=== PATIENT | female | born 1990 | race Caucasian/White ===

== ENCOUNTER 2018-06-15 08:08 | Inpatient (IN) | payer OTHER ==
[~2018-06-15] VITALS: Ht 162.6 cm; Wt 65.0 kg
[2018-06-15] MEDS ORDERED: LACTATED RINGER'S 1000ML 500 ML IV PRN (08:31)
[2018-06-15] MEDS ORDERED: LACTATED RINGER'S 1000ML 1,000 ML IV SCH ×2 (08:31→15:17)
[2018-06-15] MEDS ORDERED: LACTATED RINGER'S 1000ML 1,000 ML IV PRN (08:31)
[2018-06-15] MEDS ORDERED: CEFAZOLIN IV 1,000 MG in SYRINGE 0 ML IV PRN (08:45)
[2018-06-15] MEDS ORDERED: OXYTOCIN 30 UNITS/500ML NSS IV PRN ×2 (08:45→15:30)
[2018-06-15 08:53] LABS: HEMATOCRIT 37.2 % (37-47); HEMOGLOBIN 13.1 g/dL (12.0-16.0); MEAN CELL VOLUME 89.2 fL (80-100); MEAN CORPUSCULAR HEMOGLOBIN 31.4 pg (25-34); MEAN CORPUSCULAR HGB CONC 35.2 g/dl (32-36); MEAN PLATELET VOLUME 11.4 fL (7.4-10.4); PLATELET COUNT 169 K/uL (130-400); RED CELL DISTRIBUTION WIDTH CV 13.2 % (11.5-14.5); RED CELL DISTRIBUTION WIDTH SD 43.1 fL (36.4-46.3); WHITE BLOOD COUNT 18.52 K/uL (4.8-10.8)
[2018-06-15 09:10] VITALS: Ht 162.6 cm; Wt 65.0 kg
[2018-06-15] MEDS ORDERED: PRENTAB26 PO (09:15)
[2018-06-15] MEDS ORDERED: CEFAZOLIN IV 2,000 MG in SYRINGE 0 ML IV ONE (09:15)
--- NOTE | 2018-06-15 10:19 | Progress Note ---
Progress Note Date of Service Jun 15, 2018. Progress Note 27yo , WILEY of 06/11/2018 by US, 40.4 weeks GA, presenting with contractions 7minutes apart. course unremarkable. Blood type is A+, antibody negative, Rubella immune, Hep B negative, GBS+. O: Abdomen: Gravid, vertex, +FHTs : 5.0/80/-2 A/P: 40.4 weeks GA presenting with contractions 7mins apart. Cefazolin 2000mg IV once + Cefazolin 1000mg IV q8h PRN Anticipate NVSD
--- NOTE | 2018-06-15 15:25 | Vaginal Delivery Summary ---
Vaginal Delivery Summary in labor at 40+ weeks. Patient labored spontaneously without epidural at her own request. She reached complete dilation with an urge to push, was positioned and prepped for delivery, and then rapidly delivered a viable male infant. The infant's left arm was a compound presentation alongside R cheek. There was no delay at delivery of the shoulders. The infant was placed on the maternal abdomen and the cord was doubly clamped and cut by the FOB. The placenta delivered spontaneously and was intact with 3VC. A first degree laceration was repaired with 3-0 vicryl after infiltration with 12cc 1% lidocaine.
[2018-06-15] MEDS ORDERED: BENZOCAINE 20% AER SPR 82.5 GM CAN EXT PRN (15:30)
[2018-06-15] MEDS ORDERED: ACETAMINOPHEN 325 MG TAB PO PRN (15:30)
[2018-06-15] MEDS ORDERED: OXYCODONE/ACETAMINOPHEN 5-325 TAB PO PRN (15:30)
[2018-06-15] MEDS ORDERED: SUPERCREAM 0.870 % 15GM JAR EXT PRN (15:30)
[2018-06-15] MEDS ORDERED: HYDROCORTISONE ACETATE 25 MG SUPP PR PRN (15:30)
[2018-06-15] MEDS ORDERED: LANOLIN OINT EXT PRN (15:30)
[2018-06-15] MEDS ORDERED: DIPHTHERIA/TETANUS/PERTUSSIS 0.5 ML SYR/VIAL IM. ONE (15:30)
[2018-06-15] MEDS: IBUPROFEN 600 MG TAB PO PRN ×2 (15:58→19:41)
[2018-06-15 18:35] VITALS: BP 120/73; PULSE 94; TEMP 37.3
[2018-06-15] MEDS: DOCUSATE SODIUM 100 MG CAP PO SCH (19:40)
[2018-06-15 20:20] VITALS: BP 112/73; PULSE 65; TEMP 37.1
[2018-06-16 00:40] VITALS: BP 104/67; PULSE 76; TEMP 36.8
[2018-06-16] MEDS: IBUPROFEN 600 MG TAB PO PRN ×3 (01:02→12:00)
[2018-06-16 04:30] VITALS: BP 111/73; PULSE 65; TEMP 36.4
--- NOTE | 2018-06-16 06:49 | OB/GYN Progress Note ---
[employer] Progress Note Date of Service Jun 16, 2018. Subjective conversation w/ patient Ambulation: ambulating normally Voiding: no voiding problems Passing Gas: No (States not yet) Diet Tolerance: Regular Diet Lochia: Moderate Pain: Improving Review of Systems Respiratory: No shortness of breath Cardiac: No chest pain, No palpitations Female : No dysuria Objective Vital Signs Date Time Temp Pulse Resp B/P (MAP) Pulse Ox O2 Delivery O2 Flow Rate FiO2 06/16/18 04:30 36.4 65 20 111/73 (86) Room Air 06/16/18 00:40 Room Air 06/16/18 00:40 36.8 76 18 104/67 (79) Room Air 06/15/18 20:20 37.1 65 20 112/73 (86) Room Air 06/15/18 18:35 Room Air 06/15/18 18:35 37.3 94 20 120/73 (89) Room Air Physical Exam General Appearance: WELL-APPEARING, NO APPARENT DISTRESS Respiratory/Chest: lungs clear, normal breath sounds, no respiratory distress Cardiovascular: regular rate, rhythm, no murmur Abdomen: soft Fundus: Firm (at umbilicus) Extremities: normal inspection, no calf tenderness Laboratory Results Last 24 Hours Test 06/15/18 08:40 06/16/18 04:44 White Blood Count 18.52 K/uL Red Blood Count 4.17 M/uL Hemoglobin 13.1 g/dL Hematocrit 37.2 % Mean Corpuscular Volume 89.2 fL Mean Corpuscular Hemoglobin 31.4 pg Mean Corpuscular Hemoglobin Concent 35.2 g/dl RDW Standard Deviation 43.1 fL RDW Coefficient of Variation 13.2 % Platelet Count 169 K/uL Mean Platelet Volume 11.4 fL Assessment and Plan Post- Day Number: 1 Continue Routine Care: Analgesia PRN Escalate diet Ambulation encouraged Resident Physician Supervision Note: I interviewed and examined the patient. Discussed with Dr. Urena and agree with findings and plan as documented in the note. Any exceptions or clarifications are listed here: [None] Documented By: Sue Quintanilla
--- NOTE | 2018-06-16 06:52 | Discharge Instructions ---
Discharge Instructions Date of Service Jun 16, 2018. Admission Reason for Admission: Labor Check Discharge Discharge Diagnosis / Problem: Vaginal Delivery Discharge Goals Goal(s): Routine recovery after delivery Medications Continue Dispensed Medications: supercream, dermaplast, tucks, lansinoh Activity Recommendations Activity Limitations: per Instructions/Follow-up section . Instructions / Follow-Up Instructions / Follow-Up ACTIVITY RECOMMENDATIONS: * Gradual return to full activity over the next 2-3 weeks. * No lifting - nothing heavier than baby over the next 2-3 weeks. * Do not engage in vigorous exercise, sexual activity or sports until cleared by your physician. * Do not drive or operate any motorized equipment until cleared by your physician. * You may shower/bathe daily. MEDICATIONS: For discomfort or pain, you may use Acetaminophen (Tylenol), Ibuprofen (Advil), or Naproxen (Aleve) following the package directions. For constipation you may use Colace following the package directions. BREAST CARE: If you are not breast feeding: * Wear a supportive bra 24 hours a day for one to two weeks. * Avoid stimulating your breasts and nipples as much as possible during the first few weeks after delivery. * When taking a shower, have the warm water hit your back, not breasts. * When your breasts feel full, apply ice packs. Usually three to four times a day helps ease the discomfort. * Take a mild pain medication (Tylenol / Motrin) when you are uncomfortable. If breast feeding: * Use breast milk to lubricate nipples. Lansinoh cream may be used for sore nipples. You do not need to remove cream prior to breast feeding. If using a different brand of cream, check the label for directions regarding removal of cream prior to nursing. * Wear a supportive bra. * If having problems with breasts or breast feeding, call a data security consultant or your health care provider. EPISIOTOMY CARE: After delivery, if you have an episiotomy (stitches), the following steps will ease discomfort and aid healing. * For the first 24 hours after delivery, place ice packs next to your episiotomy to help reduce swelling. * After the first 24 hour-period, sitz baths, either portable or in the tub, are suggested. A shower with a shower arm sprayed over the episiotomy may be comforting. * Yoly care should be done after each voiding and bowel movement. Squirt warm water from a plastic bottle over the perineum (region of the body between the anus and urinary opening) and pat dry. * Use Dermoplast to ease discomfort. Shake container. Summit directly over the episiotomy. Place a Tucks on a clean sanitary pad next to your episiotomy. SPECIAL CARE INSTRUCTIONS: When you are discharged from the hospital, it is important for you to follow the instructions listed below: * During the first week at home, you should be able to care for yourself and your baby. In addition, the usual light household activities are encouraged. * Limit your activities to the way you feel. Do not try to clean the house or move furniture. Be sensible. * If you actively engage in sports and have done so up until the time of your delivery, you may resume these activities as soon as you feel able. This may take up to one month or even longer. Use good judgment. * Continue to take your vitamins for at least six weeks after the of your baby. * Your diet need not be limited unless you were on a special diet before your delivery. Breast-feeding mothers need around 2500 calories per day and at least 64-80 ounces of fluid per day (8 to 10 glasses). * You should eat foods from the four major food groups. Crash diets or fad diets are to be avoided. Eating lean meats, fresh fruits and vegetables, low-fat dairy products, high fiber foods and a regular exercise program, will help you get back to your pre- weight without putting your health at risk. * Constipation is sometimes a problem after delivery. Take a mild laxative as needed. If breast feeding, Milk of Magnesia is acceptable to use. You may use a suppository or Fleets enema if no episiotomy. * A daily shower or tub bath is suggested. Be sure to thoroughly and gently dry the perineum. * A bloody vaginal discharge will usually continue until around four weeks post . A small amount of bleeding may continue for as long as six weeks. Vaginal discharge changes from the bright red bleeding after delivery to pink then brownish and finally yellowish-pink before becoming white and disappearing. * Bleeding may increase with activity. Your first period may come in 4-8 weeks. If you are breast feeding, your period may be delayed even longer. * Halsey (sex) can begin whenever both you and your partner feel comfortable and do not have any form of genital infection. It is recommended that you wait at least six weeks for internal and external healing to occur. If you have questions, please talk to your health care practitioner. A condom should be used to prevent infection and . * Foreplay, gentle intercourse and lubrication is very important the first several times to prevent pain. A water-based lubricant such as K-Y jelly or Astroglide may be used. * If you have RH negative blood and your baby is RH positive, you will receive RHOGAM by injection prior to discharge. The nurse will give you a card to keep with you that has the date and place that you received RHOGAM after delivery. * During your care, you had a Rubella screen done to check for the presence of rubella antibodies in your blood. If your test was negative, you will receive a Rubella vaccine prior to discharge. This vaccine may cause a fever, soreness at the injection site and flu-like symptoms. If these symptoms persist, notify your health care practitioner. is not advised for one month after a Rubella vaccine. * Verbalizes understanding of car seat law as reviewed with patient nursing. * Car Seat hand-out given and reviewed with patient by nursing. * Shaken baby information reviewed with patient by nursing. Call you doctor if: * Heavy bleeding (saturating several pads an hour) or passing clots the size of your fist. * A fever >101 degrees F (38.3 degrees C) on two occasions four hours apart and /or chills. * Unusual pain in the pelvic or vaginal areas. * "Baby Blues" lasting longer than two weeks. If you have any questions or concerns, call your health care practitioner at . FOLLOW UP VISIT: * Please call the office at to schedule a 6 week examination. It is important you keep this appointment. It is important for you to make arrangements for either yearly or twice yearly check-ups thereafter. Current Hospital Diet Patient's current hospital diet: Regular OB Diet Discharge Diet Recommended Diet: Regular OB Diet Pending Studies Studies pending at discharge: no Medical Emergencies . Who to Call and When: Medical Emergencies: If at any time you feel your situation is an emergency, please call 911 immediately. . Non-Emergent Contact Non-Emergency issues call your: Primary Care Provider . . "Provider Documentation" section prepared by Emelia Urena. .
[2018-06-16 07:08] LABS: HEMATOCRIT 33.3 % (37-47); HEMOGLOBIN 11.4 g/dL (12.0-16.0)
[2018-06-16] MEDS: PRENATAL VITAMIN TAB PO SCH (08:09)
[2018-06-16] MEDS: DOCUSATE SODIUM 100 MG CAP PO SCH ×2 (08:09→20:36)
[2018-06-16] MEDS: FERROUS SULFATE 325 MG TAB PO SCH (08:09)
[2018-06-16 08:20] VITALS: BP 110/70; PULSE 71; TEMP 36.4
[2018-06-16 12:00] VITALS: BP 102/69; PULSE 70; TEMP 36.7
[2018-06-16 16:30] VITALS: BP 114/73; PULSE 81; TEMP 36.6
[2018-06-17 00:25] VITALS: BP 116/80; PULSE 73; TEMP 36.7
[2018-06-17] MEDS: IBUPROFEN 600 MG TAB PO PRN (00:33)
--- NOTE | 2018-06-17 07:56 | Progress Note ---
Subjective Jun 17, 2018. Subjective conversation w/ patient, physical exam Ambulation: ambulating normally Voiding: no voiding problems Diet Tolerance: Regular Diet Lochia: Small Feeding Type: Breast Feeding Pain: no pain issues. Objective Vital Signs Date Time Temp Pulse Resp B/P (MAP) Pulse Ox O2 Delivery O2 Flow Rate FiO2 06/17/18 00:25 36.7 73 18 116/80 (92) 06/17/18 00:25 Room Air 06/16/18 16:30 36.6 81 16 114/73 (87) Room Air 06/16/18 12:00 36.7 70 18 102/69 (80) Room Air 06/16/18 08:20 Room Air 06/16/18 08:20 36.4 71 18 110/70 (83) Room Air Physical Exam General Appearance: WELL-APPEARING, WD/WN, NO APPARENT DISTRESS Respiratory/Chest: lungs clear Cardiovascular: regular rate, rhythm Abdomen: non tender, soft Fundus: Firm, Relation to Umbilicus (2 down) Extremities: non-tender Assessment and Plan Post- Day#: 2 Continue Routine Care: stable, routine care, d/c home, f/u 6wks pp, instructions reviewed.
[2018-06-17 08:15] VITALS: BP 105/72; PULSE 73; TEMP 36.9
[2018-06-17] MEDS: PRENATAL VITAMIN TAB PO SCH (08:17)
[2018-06-17] MEDS: DOCUSATE SODIUM 100 MG CAP PO SCH (08:17)
[2018-06-17] MEDS: FERROUS SULFATE 325 MG TAB PO SCH (08:17)
[2018-06-17 13:21] VITALS: BP_DIAS 72; PULSE 73; TEMP 36.9
== END 2018-06-17 14:10 | disposition home or self-care (01) | DRG 775 ==
LOC: C.LD 08:08 → C.OPB 08:08 → C.LD 08:33 → C.OBG 17:07
PROVIDERS: ADMIT Obstetrics & Gynecology; ATTEND Obstetrics & Gynecology
PROC: 10E0XZZ Delivery of Products of Conception, External Approach (ICD-10-PCS; principal; 2018-06-15)
PROC: 0HQ9XZZ Repair Perineum Skin, External Approach (ICD-10-PCS; principal; 2018-06-15)
DX: O48.0 Post-term pregnancy (principal); Z3A.40 40 weeks gestation of pregnancy; O70.0 First degree perineal laceration during delivery; O99.824 Streptococcus B carrier state complicating childbirth; Z37.0 Single live birth; Z88.0 Allergy status to penicillin

== ENCOUNTER 2021-05-21 15:46 | Inpatient (IN) ==
[2021-05-21] MEDS ORDERED: ceFAZolin 1000MG 1,000 MG/7.5 ML SYR IV PRN (19:06)
[2021-05-21] MEDS ORDERED: OXYTOCIN 30 UNITS/500 ML BAG IV PRN (19:15)
[2021-05-21] MEDS ORDERED: LACTATED RINGER'S 1,000 ML IV PRN (19:15)
[2021-05-21] MEDS ORDERED: ceFAZolin 2000MG 2,000 MG/15 ML SYR IV STA (19:16)
--- NOTE | 2021-05-21 19:21 | History & Physical Report ---
Date of Service May 21, 2021 Assessment & Plan (1) : 30 y/o at 40 wga presents in labor VSS Fetus cat 1 Labor - will expectant manage, plan arom when closer to adequate tx as rapidly progressed w/ last delivery GBS +, has pcn allergy. Got ancef last time when GBS+ per notes, pt reports she tolerated it fine so will start this again Declines epidural History of Present Illness Chief Complaint: Labor Primary Care Provider: Terri Ledbetter MD 30 yo at 40 wga w/ WILEY 05/21 by LMP 08/14/20 c/w 1st tri US presents to lab or and delivery in labor. +FM and ctx, denies LOF, VB. On arrival was 4/75/-2, after ambulating was 5/75/-2 and so admitted in labor PNI: GBS+ Hx hematoma after G1 delivery requiring I&D Past [employer]SEL [employer] Hx: G1 2015 at 41 wks, hematoma requiring I&D G2 2018 at 40 wks G3 current Menarche 15, q29d cycles Denies hx STIs Denies hx abnl pap, 10/2020 neg cytology Allergies Allergy/AdvReac Type Severity Reaction Status Date / Time Penicillins Allergy Intermediate Brathing Verified 05/21/21 17:02 difficulty Home Medications Medication Instructions Recorded Confirmed Type albuterol sulfate [ProAir HFA] 2 puff INH .Q4-6 HRS PRN 05/23/20 05/21/21 History docusate sodium [Colace] 100 mg PO BID #60 cap 05/23/20 05/21/21 Rx prenat.vits,violet,lce-[id number] 1 tab PO DAILY 10/02/20 05/21/21 History Patient History Medical History (Updated 05/21/21 @ 19:20 by Bharati Dave MD) Mild intermittent asthma Surgical History History of evacuation of hematoma History of wisdom tooth extraction Family History Sister Depression with anxiety Ovarian cyst Seizure Grandmother (Paternal) Breast cancer Father Diabetes Grandmother (Maternal) Diabetes Hypertension Myocardial infarction Uncle Diabetes Myocardial infarction Mother Hypertension Thyroid disease Grandfather (Paternal) Hypertension Myocardial infarction Sister Depression Sister No problems noted. Son No problems noted. Daughter No problems noted. 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 Other Information That Helps Us Care for You: No Feels Safe at Home: Yes Safety Concerns: Feels Safe At This Time Childhood Exposure to Second-Hand Smoke: No Dental Care, Regularly: Yes Physical Activity Frequency: Daily Seatbelt Use: always Sunscreen Use: Yes Assistive Devices: None Physical Exam Constitutional: WD/WN, vitals as above Respiratory: normal respiratory effort; no respiratory distress and no labored breathing Psychiatric: A+Ox3, euthymic affect Genitourinary: OB Exam Abdomen: + vertex and + estimated weight (6-7) Manual OB Exam: + cervical dilation (4>5 after 2hr marilyn), + cervical effacement 70% and + station -2 OB Exam Monitor Tracing: + external FHT monitor used, + external uterine monitor used (q4-6) and + category I (145/mod/+accel/-decel) Results & Data ([facility]) Vital Signs (Past 12 Hours) Vital Signs Temp Pulse Resp BP 05/21/21 15:53 98.6 F 85 20 108/66 Laboratory Results OB Labs: Blood Type A Positive 10/13/20 Antibody Screen NEGATIVE 10/13/20 Hemoglobin 11.5 g/dL (12.0-16.0) L 03/01/21 Hematocrit 34.5 % (37-47) L 03/01/21 Mean Corpuscular Volume 88.6 fL (80-100) 10/13/20 Platelet Count 240 K/uL (130-400) 10/13/20 Rubella IgG Antibody Immune (Immune) 10/13/20 Rapid Plasma Reagin Nonreactive (Nonreactive) 10/13/20 Hepatitis B Surface Antigen Neg (Neg) 10/13/20 HIV (1&2) Ab and P24 Ag, 4th Gener Neg (Neg) 10/13/20 Glucose 1 Hour 50 gm Load 144 mg/dl (70-130) H 12/16/20 Maternal Serum Alpha Fetoprotein 71.4 ng/mL 12/16/20 OB Optional Labs: Chlamydia trachomatis RNA NOT DETECTED (NOT DETECTED) 10/13/20 Neisseria gonorrhoeae RNA NOT DETECTED (NOT DETECTED) 10/13/20 Thyroid Stimulating Hormone (TSH) 2.130 uIu/ml (0.300-4.500) 06/26/20 Alpha Fetoprotein Triple Screen SEE NOTE 12/16/20 Labs Reviewed: declines cf/sma low risk cfdna afp neg GBS+ Diagnostic Findings Anterior plac Coding Level of Care Code None Diagnoses Z34.90
[2021-05-21 19:35] LABS: Hemoglobin 12.3 g/dL (12.0-16.0); Mean Corpuscular Hemoglobin 30.6 pg (25-34); Mean Corpuscular Hgb Conc 34.2 g/dL (32-36); Mean Corpuscular Volume 89.6 fL (80-100); Mean Platelet Volume 11.3 fL (7.4-10.4); Platelet Count 208 K/uL (130-400); RDW Coefficient of Variation 13.8 % (11.5-14.5); RDW Standard Deviation 45.4 fL (36.4-46.3); Red Blood Count 4.02 M/uL (4.2-5.4); White Blood Count 17.51 K/uL (4.8-10.8)
--- NOTE | 2021-05-21 22:05 | Labor Progress Brief Note ---
Date of Service May 21, 2021 Subjective Worsened ctx, desires check Assessment & Plan (1) : 30 y/o at 40 wga presents in labor VSS Fetus cat 1 Labor - desires AROM to try advancing progression speed, s/p arom. Continue to monitor GBS +, ancef for tx Declines epidural Admission and Anticipated Discharge Date Admission Date: May 21, 2021 Physical Exam Genitourinary: Manual OB Exam: + cervical dilation 5 cm, + cervical effacement 90%, + station 0 and + amniotic fluid (AROM clear per pt request) clear OB Exam Monitor Tracing: + external FHT monitor used, + external uterine monitor used (q4) and + category I (135/mod/+accel/-decel) Results & Data ([facility]) Vital Signs (Past 12 Hours) Vital Signs Temp Pulse Resp BP 05/21/21 19:12 98.2 F 94 H 18 125/71 05/21/21 15:53 98.6 F 85 20 108/66 Coding Level of Care Code None Diagnoses Z34.90
[2021-05-21] MEDS ORDERED: LIDOCAINE 1% LOCAL 20 ML VIAL ONE (23:33)
--- NOTE | 2021-05-21 23:50 | Delivery Summary ---
Vaginal Delivery Summary Date of Service May 21, 2021 PREOPERATIVE DIAGNOSIS: 1. Single intrauterine at 40 weeks gestation 2. Labor 3. GBS+ POSTOPERATIVE DIAGNOSIS: 1. Single intrauterine at 40 weeks gestation 2. Labor 3. GBS+ 4. Delivered PROCEDURE: 1. Normal spontaneous vaginal delivery. SURGEON: Bharati Dave MD ANESTHESIA: None ESTIMATED BLOOD LOSS: 300 mL FLUIDS: Continuous LR. URINE OUTPUT: None. COMPLICATIONS: None. CONDITION: Stable. INDICATIONS: 30 yo at 40 wga presented earlier today with contractions increasing in frequency and intensity. +FM; denied LOF, VB. She was started on ancef for GBS+ prophylaxis. She was expectantly managed and continued to progress. She underwent artificial rupture of membranes and then progressed to complete and desired to push. FINDINGS: A viable female infant with Apgars of 8 and 9 at 1 and 5 minutes respectively. SPECIMEN: Cord blood OPERATIVE REPORT: The patient progressed to 10 cm, 100% effaced and +2 station, pushed over intact perineum with anesthesia to deliver a viable female infant, Apgars as above. Head of delivered in NASRIN position. No nuchal cord was present. Body and shoulders were delivered without difficulty. was delivered to maternal abdomen and nursing staff. Delayed cord clamping was performed for 60 seconds. Cord was clamped and cut. Cord blood was obtained. Placenta delivered spontaneously intact with 3-vessel cord. IV oxytocin and fundal massage were given for excellent hemostasis. Vagina, cervix, perineum, and placenta were inspected. A small second degree laceration was noted and repaired in the usual fashion. Sponge and needle counts correct x2. No sponges were left behind. Mother and stable in immediate period. Vaginal Delivery Summary and 2nd Degree [facility] Vaginal Delivery Charge Vaginal Delivery Codes: 86590 global code for the antepartum, delivery, and post- Delivery Type Details: and 2nd Degree [facility]
[2021-05-22] MEDS ORDERED: IBUPROFEN 600 MG TAB PO ONE (00:03)
[2021-05-22] MEDS ORDERED: SUPERCREAM 0.870% 15 GM JAR EXT PRN (00:17)
[2021-05-22] MEDS ORDERED: HYDROCORTISONE ACETATE 25 MG SUPP PR PRN (00:17)
[2021-05-22] MEDS ORDERED: OXYTOCIN 30 UNITS/500 ML BAG IV PRN (00:17)
[2021-05-22] MEDS ORDERED: DIPHTHERIA/TETANUS/PERTUSSIS 0.5 ML SYR/VIAL IM ONE (00:17)
[2021-05-22] MEDS ORDERED: BENZOCAINE 20% AER SPR 82.5 GM CAN EXT PRN (00:17)
[2021-05-22] MEDS ORDERED: bisacodyL 10 MG SUPP PR PRN (00:17)
[2021-05-22] MEDS ORDERED: ALBUTEROL HFA 8 GM INHALER INH PRN (00:31)
[2021-05-22 06:12] LABS: Hematocrit (blood only) 37.5 % (37-47); Hemoglobin 12.8 g/dL (12.0-16.0); Mean Corpuscular Hemoglobin 31.4 pg (25-34); Mean Corpuscular Hgb Conc 34.1 g/dL (32-36); Mean Corpuscular Volume 91.9 fL (80-100); Mean Platelet Volume 11.3 fL (7.4-10.4); Platelet Count 250 K/uL (130-400); RDW Coefficient of Variation 13.9 % (11.5-14.5); RDW Standard Deviation 46.8 fL (36.4-46.3); Red Blood Count 4.08 M/uL (4.2-5.4); White Blood Count 20.75 K/uL (4.8-10.8)
--- NOTE | 2021-05-22 07:27 | Obstetrical Progress Note ---
Date of Service May 22, 2021 Assessment & Plan (1) state: 30 yo PP3 from , doing well -Meeting all pp milestones -A+/rubella immune/ -f/u 6 weeks for appt, continue routine pp care. Subjective Ambulation: ambulating normally Voiding: no voiding problems Passing Gas:: Yes Diet Tolerance:: regular diet Lochia:: Small Feeding Type:: breast feeding Pain well managed with medication Review of Systems Denies fevers, chills, n/v, VILLALTA, CP, SOB Physical Exam Constitutional WD/WN, vitals as above no acute distress Respiratory normal respiratory effort, lungs clear to auscultation Cardiovascular RRR, no murmur, no edema Gastrointestinal (Abdomen) Percussion/Palpation: abdomen soft; abdomen nontender fundus firm at umbilicus and NT Musculoskeletal BLE symmetric, nonerythematous, nontender Results & Data ([facility]) Vital Signs (Past 12 Hours) Vital Signs Temp Pulse Resp BP 05/22/21 02:35 98.1 F 90 18 120/70 05/22/21 01:02 90 121/70 05/22/21 00:47 98 H 18 131/68 05/22/21 00:32 90 18 121/71 05/22/21 00:17 86 18 119/83 05/22/21 00:02 93 H 18 119/87 05/21/21 23:46 100 H 18 134/74 05/21/21 23:34 98 H 131/76 05/21/21 21:58 98.2 F
[2021-05-22] MEDS: DOCUSATE SODIUM 100 MG CAP PO SCH ×2 (08:04→21:36)
[2021-05-22] MEDS: FERROUS SULFATE 325 MG TAB PO SCH (08:05)
[2021-05-22] MEDS: PRENATAL VITAMIN 1 TAB PO SCH (08:05)
[2021-05-22] MEDS: IBUPROFEN 600 MG TAB PO PRN ×3 (08:05→16:34)
[2021-05-22] MEDS: ACETAMINOPHEN 325 MG TAB PO PRN ×2 (14:30→19:27)
[2021-05-22] MEDS ORDERED: bisacodyL 5 MG TABEC PO SCH (20:00)
[2021-05-23] MEDS: IBUPROFEN 600 MG TAB PO PRN (03:47)
--- NOTE | 2021-05-23 08:14 | Obstetrical Progress Note ---
Date of Service May 23, 2021 Assessment & Plan (1) state: Doing well. Plan d/c home. INstructions given. f/u in 6 weeks. Day #:: 1 Subjective Ambulation: ambulating normally Voiding: no voiding problems Passing Gas:: Yes Diet Tolerance:: regular diet Lochia:: Small Feeding Type:: breast feeding Physical Exam Constitutional WD/WN, vitals as above Respiratory normal respiratory effort, lungs clear to auscultation Cardiovascular RRR, no murmur, no edema Extremities: no calf tenderness and no edema Gastrointestinal (Abdomen) soft, nt, nd, ff/nt 1 below u Psychiatric A+Ox3, euthymic affect Results & Data ([facility]) Vital Signs (Past 12 Hours) Vital Signs Temp Pulse Pulse Resp BP Pulse Ox 05/23/21 07:02 37.0 C 70 18 101/67 99 05/23/21 00:30 36.9 C 76 18 105/68
[2021-05-23] MEDS: DOCUSATE SODIUM 100 MG CAP PO SCH (09:02)
[2021-05-23] MEDS: FERROUS SULFATE 325 MG TAB PO SCH (09:02)
[2021-05-23] MEDS: PRENATAL VITAMIN 1 TAB PO SCH (09:02)
== END 2021-05-23 11:30 | disposition home or self-care (01) | DRG 807 ==
LOC: OPB 15:46 → 4S1 15:49 → 4S2 05-22 01:56

== ENCOUNTER 2023-02-08 07:37 | Inpatient (IN) ==
[2023-02-08] MEDS ORDERED: OXYTOCIN 30 UNITS/500 ML BAG IV PRN ×3 (07:53→14:17)
[2023-02-08] MEDS ORDERED: LIDOCAINE 1% LOCAL 20 ML VIAL INFIL PRN (07:53)
[2023-02-08] MEDS ORDERED: CLINDAMYCIN/D5W 900 MG/50 ML BAG IV SCH (08:00)
--- NOTE | 2023-02-08 08:12 | History & Physical Report ---
Date of Service February 08, 2023 Assessment & Plan (1) Encounter for supervision of normal in multigravida: Plan: Plan for induction of labor secondary to post dates with Pitocin. Epidural as desired. (2) Carrier of group B Streptococcus: Plan: Plan to treat with Ancef while in labor as she is allergic to Penicillin. Tolerated Ancef well with last labor. (3) Post-dates : (4) Encounter for induction of labor: Admission and Anticipated Discharge Date Admission Date: February 08, 2023 History of Present Illness Primary Care Provider: Terri Ledbetter MD Mariajose is a 32 y/o female currently at 40 1/7 WGA with an WILEY 02/07/2023 as determined by Ultrasound who is here for induction of labor . no contractions; + movement; no fluid loss; no bloody show External FHT and external uterine monitors used; Category 1 tracing; moderate FHT variability. Had regular appointments with OB. OB Labs: Blood Type A Positive 06/27/22 Antibody Screen NEGATIVE 06/27/22 Hemoglobin 12.0 g/dl (12.0-16.0) 11/15/22 Hematocrit 35.9 % (34.1-44.9) 11/15/22 Mean Corpuscular Volume 85.9 fL (80.0-100.0) 06/27/22 Platelet Count 215 K/uL (130-400) 06/27/22 Rubella IgG Antibody Immune (Immune) 06/27/22 Rapid Plasma Reagin Nonreactive (Nonreactive) 06/27/22 Hepatitis B Surface Antigen Neg (Neg) 10/13/20 Hepatitis B Surface Antigen. NON-REACTIVE (NON-REACTIVE) 06/27/22 Hepatitis C Antibody (EIA)E NON-REACTIVE (NON-REACTIVE) 06/27/22 HIV (1&2) Ab and P24 Ag, 4th Gener Neg (Neg) 10/13/20 HIV (1&2) Ag and Ab Confirmation NON-REACTIVE (NON-REACTIVE) 06/27/22 Glucose 1 Hour 50 gm Load 96 mg/dl (70-130) 11/15/22 Maternal Serum Alpha Fetoprotein 71.4 ng/mL 12/16/20 OB Optional Labs: Chlamydia trachomatis RNA NOT DETECTED (NOT DETECTED) 06/27/22 Neisseria gonorrhoeae RNA NOT DETECTED (NOT DETECTED) 06/27/22 Thyroid Stimulating Hormone (TSH) 2.130 uIu/ml (0.300-4.500) 06/26/20 Labs Reviewed: declines cf/sma cfdna-low risk--mln Declines msafp--mln gbs positive Allergies Allergy/AdvReac Type Severity Reaction Status Date / Time Penicillins Allergy Intermediate Breathing Verified 02/07/23 14:10 difficulty Home Medications Medication Instructions Recorded Confirmed Type prenat.vits,violet,ipn-rzyy-nwnfd 1 tab PO DAILY 06/17/22 02/07/23 History Patient History Medical History Carrier of group B Streptococcus Mild intermittent asthma Spontaneous vaginal delivery [facility] 01/04/16 LM 06/15/18 [facility] 05/21/21 Surgical History History of evacuation of hematoma History of oral surgery gum grafting as a teenager History of wisdom tooth extraction Family History Sister Depression with anxiety Ovarian cyst Seizure Grandmother (Paternal) Breast cancer Stroke Father Diabetes Hypertension Grandmother (Maternal) Diabetes Hypertension Myocardial infarction Uncle Diabetes Myocardial infarction Mother Hypertension Thyroid disease Grandfather (Paternal) Hypertension Myocardial infarction Sister Depression Sister No problems noted. Son No problems noted. Daughter No problems noted. Grandfather (Maternal) Hypertension Family/Other Heart disease maternal and paternal relatives Other Chromosomal disease No family history of adverse response to anesthesia No family history of bleeding disorder Denies family history of Ovarian cancer Prostate cancer Colorectal cancer Social History Smoking Status: Never smoker Second Hand Exposure: No; Do You Dip or Chew Tobacco: No; Tobacco Cessation Education Requested by Patient: No Hx Alcohol Use: No Hx Substance Use: No Preferred Language: Uzbek Communication Ability: Effective Visual Impairment: No Limitations Hearing Ability: Normal Compliance Professional Required: No Beliefs That Will Affect Care: None marital status: marital status details: [employer] (30) [phone] Current Living Situation: Spouse Current Living Situation Comment: - [employer], 3 children current occupational status: other 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 Other Information That Helps Us Care for You: No Feels Safe at Home: Yes Safety Concerns: Feels Safe At This Time Childhood Exposure to Second-Hand Smoke: No Dental Care, Regularly: Yes Physical Activity Frequency: Daily Seatbelt Use: always Sunscreen Use: Yes Assistive Devices: Contacts OB History History : 4 Full term: 3 Premature: 0 Total Number of Induced Abortions: 0 Total Number of Spontaneous Abortions: 0 Ectopics: 0 Multiple births: 0 Number of Living Children: 3 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 WNL. Dave Review of Systems Denies fever, chills, sweats Denies shortness of breath, difficulty breathing, chest pain, palpitations, chest pressure. Denies breast pain. Denies dysuria. Denies headache or changes in vision. Physical Exam Physical Exam: General: Alert, oriented. No acute distress. Cardiac: Regular rate and rhythm, no murmurs/rubs/gallops. Respiratory: Clear to auscultation bilaterally a/p, no wheezes/rales/rhonchi. No increased work of breathing. Symmetrical chest rise. No respiratory distress. Abdomen: Gravid Pelvic: Refer to attending attestation Lower Extremities: No lower extremity edema or swelling. No deep calf pain. Code Status & VTE Plan VTE Prophylaxis Plan VTE Prophylaxis will be ordered: No Supervising Physician Co-Signing Physician Notes Resident Physician Supervision Note: I interviewed and examined the patient. Discussed with Dr. Pennington and agree with findings and plan as documented in the note. Any exceptions or clarifications are listed here: Patient presents for induction. Favorable cervix. Irregular contractions. Category one strip. Discussed different options for induction. Plan pitocin until good contraction pattern, then epidural, then arom. GBS positive. Had ancef in her last two deliveries without issue, so will plan for this. Patient agreeable. Anticipate . Documented By: Dorys Hoffman MD, FACOG Resident Activity Tracking Resident Involvement: Resident Care Provided Care Provided: OB Delivery
[2023-02-08 08:29] LABS: Hematocrit (blood only) 36.5 % (37.0-47.0); Hemoglobin 12.8 g/dl (12.0-16.0); Mean Corpuscular Hemoglobin 30.7 pg (25.0-34.0); Mean Corpuscular Hgb Conc 35.1 g/dL (32.0-36.0); Mean Corpuscular Volume 87.5 fL (80.0-100.0); Mean Platelet Volume 11.4 fL (9.4-12.4); Platelet Count 166 K/uL (130-400); RDW Coefficient of Variation 13.2 % (11.5-14.5); Red Blood Count 4.17 M/uL (4.20-5.40); White Blood Count 8.54 K/ul (4.8-10.8)
[2023-02-08] MEDS ORDERED: ceFAZolin 2000MG 2,000 MG/15 ML SYR IV STA (08:56)
[2023-02-08] MEDS: LACTATED RINGER'S 1,000 ML IV PRN ×2 (08:57→11:12)
[2023-02-08] MEDS ORDERED: BUPIVACAINE 0.25% PF 30 ML VIAL ONE (10:42)
[2023-02-08] MEDS ORDERED: SODIUM CHLORIDE 0.9% PF INJ 10 ML VIAL ONE (10:42)
[2023-02-08] MEDS ORDERED: fentaNYL citrate PF 100 MCG/2 ML VIAL ONE (10:42)
[2023-02-08] MEDS ORDERED: ePHEDrine sulfate 50 MG/ML AMP ONE (10:42)
[2023-02-08] MEDS ORDERED: LIDOCAINE 2%/EPINEPHRINE 1:200,000 20 ML PF ONE (10:43)
[2023-02-08] MEDS ORDERED: fentaNYL 2MCG/ML ROPIVACAINE 1.25MG/ML 100 ML BAG EPI ONE (10:43)
[2023-02-08] MEDS ORDERED: NALOXONE HCL 1 MG in SODIUM CHLORIDE 0.9% 1000ML 1,000 ML IV PRN (11:00)
[2023-02-08] MEDS ORDERED: ePHEDrine sulfate 50 MG/ML AMP IV PRN (11:00)
[2023-02-08] MEDS ORDERED: NALOXONE HCL 0.4 MG/1 ML VIAL/CARP IV PRN (11:00)
[2023-02-08] MEDS ORDERED: NALBUPHINE HCL INJ 10 MG/ML AMP IV PRN (11:00)
[2023-02-08] MEDS ORDERED: ONDANSETRON INJ 2 MG/ML 2 ML VIAL IV PRN (11:00)
[2023-02-08] MEDS ORDERED: diphenhydrAMINE 50 MG/ML VIAL IV PRN (11:00)
[2023-02-08] MEDS ORDERED: fentaNYL 2MCG/ML ROPIVACAINE 1.25MG/ML 100 ML BAG EPI PRN (11:00)
--- NOTE | 2023-02-08 11:00 | Anesthesiology Consultation ---
Date of Service February 08, 2023 Assessment & Plan ASA ASA2 Proposed Anesthesia Anesthesia Type: Labor Epidural Risk / Benefits Reviewed With: PT / POA / Parent / Guardian, Accepts Plan and Informed Consent Obtained History Height/Weight Height: 5 ft 5 in Weight: 69.853 kg Allergies Allergy/AdvReac Type Severity Reaction Status Date / Time Penicillins Allergy Intermediate Breathing Verified 02/07/23 14:10 difficulty Medications Home Medications Medication Instructions Recorded Confirmed Last Taken prenat.vits,violet,sdx-ibhz-mbmbw 1 tab PO DAILY 06/17/22 02/07/23 01/29/23 Active Medications Generic Name Dose Route Start Last Admin Trade Name Freq PRN Reason Stop Dose Admin Lactated Ringer's 1,000 mls @ 125 mls/hr 02/08/23 07:53 02/08/23 11:35 Lr IV 02/10/23 07:52 125 mls/hr .Q8H PRN Infusion L&D Protocol Protocol Oxytocin 30 units in 500 mls @ 8 mls/hr 02/08/23 08:54 02/08/23 10:45 Pitocin IV 02/10/23 08:53 0.48 units/hr .Q24H PRN 8 mls/hr Labor Induction/Augmentation Titration Protocol 0.48 UNITS/HR Past Medical History Medical History Carrier of group B Streptococcus Mild intermittent asthma Spontaneous vaginal delivery [facility] 01/04/16 LM 06/15/18 LF 05/21/21 Exercise / Class Metabolic Activity II 4-5 Yardwork/Stairs/Walk up hill Past Family History Family History Sister Depression with anxiety Ovarian cyst Seizure Grandmother (Paternal) Breast cancer Stroke Father Diabetes Hypertension Grandmother (Maternal) Diabetes Hypertension Myocardial infarction Uncle Diabetes Myocardial infarction Mother Hypertension Thyroid disease Grandfather (Paternal) Hypertension Myocardial infarction Sister Depression Sister No problems noted. Son No problems noted. Daughter No problems noted. Grandfather (Maternal) Hypertension Family/Other Heart disease maternal and paternal relatives Other Chromosomal disease No family history of adverse response to anesthesia No family history of bleeding disorder Denies family history of Ovarian cancer Prostate cancer Colorectal cancer Past Surgical History Surgical History History of evacuation of hematoma History of oral surgery gum grafting as a teenager History of wisdom tooth extraction Past Anesthesia History No Hx of Anesthesia Complications and No Family Hx of Anesthesia Complications History of PONV No Hx of PONV and No Hx of Motion Sickness Social History Smoking Status: Never smoker Do You Dip or Chew Tobacco: No Hx Alcohol Use: No Hx Substance Use: No substance use type: does not use Review of Systems denies fever/cough/ colds/ chest pain/ SOB/ TRISH denies TRISH Physical Exam Vital Signs Last Vital Signs Temp 36.8 C 02/08/23 08:04 Pulse 82 02/08/23 11:36 Resp 18 02/08/23 08:04 BP 111/59 L 02/08/23 11:36 Pulse Ox 100 02/08/23 11:35 ENMT Mouth: no TMJ abnormality and no dentition abnormality Thyromental Distance: > or= 3.5 Finger Breadths Mallampati Class: II Neck neck extension not limited Respiratory normal respiratory effort; no respiratory distress Auscultation: lungs clear to auscultation bilaterally Cardiovascular Rate/Rhythm: regular rate and regular rhythm Neurologic moves all extremities Psychiatric Orientation: alert and oriented x 3 Testing Laboratory Results 02/08/23 08:15
--- NOTE | 2023-02-08 13:11 | Labor Progress Brief Note ---
Date of Service February 08, 2023 Subjective comfortable with epidural Assessment & Plan (1) Encounter for induction of labor: Plan continue current management. fetus category one. anticipate . Admission and Anticipated Discharge Date Admission Date: February 08, 2023 Physical Exam Physical Exam: cx--4-5/75/-2 arom--minimal fluid toco--q2-3min efm--130s with mod variability, accels to 160s, no decels Results & Data Vital Signs (Past 12 Hours) Vital Signs Temp Pulse Resp BP Pulse Ox 02/08/23 08:04 36.8 C 18 02/08/23 13:05 73 129/71 100 02/08/23 13:00 66 100 02/08/23 12:55 66 100 02/08/23 12:50 65 99 02/08/23 12:49 67 96/58 L 02/08/23 12:45 68 99 02/08/23 12:40 66 99 02/08/23 12:35 67 105/63 99 02/08/23 12:30 80 20 100 02/08/23 12:25 69 99 02/08/23 12:20 77 100 02/08/23 12:19 69 108/70 02/08/23 12:15 73 100 02/08/23 12:10 72 100 02/08/23 12:05 70 100 02/08/23 12:04 65 112/64 02/08/23 12:00 73 100 02/08/23 11:55 77 100 02/08/23 11:50 74 100 02/08/23 11:48 71 111/65 02/08/23 11:46 82 115/67 02/08/23 11:45 83 100 02/08/23 11:44 68 120/72 02/08/23 11:42 72 118/71 02/08/23 11:40 100 02/08/23 11:40 77 02/08/23 11:40 75 116/68 02/08/23 11:38 90 115/67 02/08/23 11:35 81 100 02/08/23 11:36 82 111/59 L 02/08/23 11:34 78 113/61 02/08/23 11:32 83 115/64 02/08/23 11:30 100 02/08/23 11:30 94 H 02/08/23 11:30 76 113/58 L 02/08/23 11:25 89 100 02/08/23 11:26 90 133/85 02/08/23 11:24 86 126/72 02/08/23 11:22 90 155/80 H 02/08/23 11:20 85 100 02/08/23 11:15 82 99 02/08/23 11:10 74 100 02/08/23 11:09 75 116/74 02/08/23 11:05 74 100 02/08/23 11:00 85 100 02/08/23 10:55 80 100 02/08/23 10:54 78 120/74 02/08/23 10:50 82 100 02/08/23 10:39 70 125/71 02/08/23 10:24 71 106/68 02/08/23 10:09 70 116/68 02/08/23 09:38 76 119/73 02/08/23 09:17 75 111/73 02/08/23 08:08 81 116/73 Coding Level of Care Code None Diagnoses Encounter for induction of labor Z34.90
--- NOTE | 2023-02-08 14:07 | Delivery Summary ---
Vaginal Delivery Summary Date of Service February 08, 2023 Vaginal Delivery Summary [facility] Pre-operative Diagnosis: at 40 1/7 elective induction Post-operative Diagnosis: same Procedure: pitocin induction epidural arom EBL: 300cc Anesthesia: epidural Procedure: Patient presented to labor and delivery for induction of labor. underwent pitocin, epidural and arom at 4-5cm. Progressed precipitously and called to the room when patient . The patient pushed for one contraction to deliver a viable femal in jm position. The rest of the then delivered without difficulty. The baby was vigorous. The nose and mouth were bulb suctioned and the was placed in the maternal abdomen for drying and attention. Cord was clamped and cut at one minute of life. Cord blood and segment obtained. Placenta delivered spontaneous, intact with a three vessel cord. Cervix/sulci/rectum/perineum were intact. Hemostasis obtained with dilute pitocin and fundal massage. Apgars were 8/9. Mother and baby doing well at the end of the delivery. [facility] Vaginal Delivery Charge Delivery Type Details: [facility]
[2023-02-08] MEDS ORDERED: BENZOCAINE 20% AER SPR 82.5 GM CAN EXT PRN (14:17)
[2023-02-08] MEDS ORDERED: bisacodyL 10 MG SUPP PR PRN (14:17)
[2023-02-08] MEDS ORDERED: HYDROCORTISONE ACETATE 25 MG SUPP PR PRN (14:17)
[2023-02-08] MEDS ORDERED: DIPHTHERIA/TETANUS/PERTUSSIS 0.5mL SYR/VIAL (Age 7+yrs) IM ONE (14:17)
--- NOTE | 2023-02-08 14:36 | Anesthesia Procedure Note ---
Date of Service February 08, 2023 Anesthesia Post Epidural Note Vital Signs Vital Signs: Temp Pulse Resp BP Pulse Ox 36.8 C 67 16 121/57 L 100 02/08/23 14:00 02/08/23 14:20 02/08/23 14:00 02/08/23 14:20 02/08/23 13:50 Notes Mental Status: alert / awake / arousable and participated in evaluation Nausea / Vomiting: adequately controlled Pain: adequately controlled Airway Patency, RR, SpO2: stable & adequate BP & HR: stable & adequate Hydration State: stable & adequate Neuraxial Anesthesia: was administered and sensory block is resolving Anesthetic Complications: no major complications apparent and Pt Satisfied with anesthetic care Epidural: Removed without complications and With tip intact
[2023-02-08] MEDS ORDERED: ceFAZolin 1000MG 1,000 MG/7.5 ML SYR IV PRN (15:54)
[2023-02-08] MEDS: IBUPROFEN 600 MG TAB PO PRN ×2 (18:32→22:12)
[2023-02-08] MEDS: DOCUSATE SODIUM 100 MG CAP PO SCH (21:06)
[2023-02-09] MEDS: ACETAMINOPHEN 325 MG TAB PO PRN ×3 (01:24→15:15)
[2023-02-09] MEDS: IBUPROFEN 600 MG TAB PO PRN ×4 (01:52→12:58)
--- NOTE | 2023-02-09 05:41 | Obstetrical Progress Note ---
Date of Service <Lisa SMary Pennington DO - Last Filed: 02/09/23 06:28> February 09, 2023 Assessment & Plan <Lisa SMary Pennington DO - Last Filed: 02/09/23 06:28> (1) Status post vaginal delivery: Feels well today. Eating well, voiding well, ambulating well. - Routine care -- OOB, ambulation, diet progression as tolerated - After discharge will have 6 week follow-up <Dorys Hoffman MD, FACOG - Last Filed: 02/09/23 07:18> (1) Status post vaginal delivery: Subjective <Lisa S. DO [place] - Last Filed: 02/09/23 06:28> Mariajose is a 32 y/o female who is now PPD # 1 following vaginal delivery at 40 1/7 weeks. Reports feeling well overall this morning. Mild abdominal cramping and is also having some low back pain, pain well managed on analgesics. Voiding. Tolerating meals overnight and able to ambulate some. Some persistent lochia with some improvement this morning. Breast feeding. Review of Systems Denies fever, chills, sweats Denies shortness of breath, difficulty breathing, chest pain, palpitations, chest pressure. Denies breast pain. Denies dysuria. Denies headache or changes in vision. Physical Exam <Lisa Lydia Pennington DO - Last Filed: 02/09/23 06:28> General: Alert, oriented. No acute distress. Cardiac: Regular rate and rhythm, no murmurs/rubs/gallops. Respiratory: Clear to auscultation bilaterally a/p, no wheezes/rales/rhonchi. No increased work of breathing. Symmetrical chest rise. No respiratory distress. Abdomen: Soft, nontender, nondistended. Uterus: Uterine fundus firm, palpable 3 cm below umbilicus. Lower Extremities: No lower extremity edema or swelling. No deep calf pain. Results & Data <Lisa Lydia Pennington DO - Last Filed: 02/09/23 06:28> Vital Signs (Past 12 Hours) Vital Signs Temp Pulse Resp BP Pulse Ox O2 Del Method 02/09/23 03:32 36.5 C 60 18 103/68 98 Room Air 02/08/23 23:05 36.8 C 64 18 104/65 97 Room Air 02/08/23 19:58 36.8 C 67 20 104/68 98 Room Air <Dorys Hoffman MD, FACOG - Last Filed: 02/09/23 07:18> Co-Signing Physician Notes Resident Physician Supervision Note: I interviewed and examined the patient. Discussed with Dr. Pennington and agree with findings and plan as documented in the note. Any exceptions or clarifications are listed here: Doing well. Routine pp care. Would like to go home today. d/c instructions given. Documented By: Dorys Hoffman MD, FACOG Resident Activity Tracking <Lisa Pennington, DO - Last Filed: 02/09/23 06:28> Resident Involvement: Resident Care Provided Care Provided: OB Delivery (post )
[2023-02-09] MEDS: DOCUSATE SODIUM 100 MG CAP PO SCH (07:57)
[2023-02-09] MEDS ORDERED: PRENATAL VITAMIN 1 TAB PO SCH (08:00)
[2023-02-09] MEDS ORDERED: bisacodyL 5 MG TABEC PO SCH (20:00)
== END 2023-02-09 16:56 | disposition home or self-care (01) | DRG 807 ==
LOC: 4S1 07:37 → 4E2 17:15